=== PATIENT | male | born 1965 | race Two or more races ===

== ENCOUNTER 2021-09-04 06:26 | Day surgery (SDC) | payer MEDICARE ==
[~2021-09-04] VITALS: Ht 30.5 cm; Wt 0.5 kg
[2021-09-04] MEDS ORDERED: BUPIVACAINE HCL 50 ML ONE (06:54)
[2021-09-04] MEDS ORDERED: ceFAZolin 1GM/50ML 100 ML IV ONE (07:01)
[2021-09-04] MEDS ORDERED: SUCCINYLCHOLINE CHLORIDE 20 MG/ML 10ML VIAL IV ONE (07:34)
[2021-09-04] MEDS ORDERED: fentaNYL CITRATE 100 MCG/2 ML VL ONE (07:38)
[2021-09-04] MEDS ORDERED: MIDAZOLAM HCL 2MG/2ML 2ml VIAL (1mg/ml) ONE (07:38)
[2021-09-04] MEDS ORDERED: ROCURONIUM 10MG/ML 10ML VIAL IV ONE (07:39)
[2021-09-04] MEDS ORDERED: LIDOCAINE 1% (LOCAL ANESTH.) PF 5ml SDV ONE (08:17)
[2021-09-04] MEDS ORDERED: ONDANSETRON HCL 4 MG/2 ML VIAL ONE (08:17)
[2021-09-04] MEDS ORDERED: PROPOFOL 10 MG/ML 20 ML IV ONE (08:18)
[2021-09-04] MEDS ORDERED: GLYCOPYRROLATE 0.2 MG/ML 1ML VIAL ONE (08:30)
[2021-09-04] MEDS ORDERED: NEOSTIGMINE 1 MG/ML INJ (10mg/10ML VIAL) ONE (08:30)
[2021-09-04] MEDS ORDERED: ONDANSETRON HCL 4 MG/2 ML VIAL IV PRN (08:45)
[2021-09-04] MEDS ORDERED: HYDROmorphone HCL 2 MG/ML VL/or syr IV PRN (08:45)
[2021-09-04] MEDS ORDERED: OXY10CRT PO (09:13)
[2021-09-04 10:15] VITALS: BP 106/67
== END 2021-09-04 10:25 | disposition home or self-care (01) ==
LOC: SUR 06:26
PROVIDERS: ATTEND Orthopaedic Surgery Sports Medicine
DX: S83.232A Complex tear of medial meniscus, current injury, left knee, initial encounter (principal); M94.262 Chondromalacia, left knee; E66.9 Obesity, unspecified; E03.9 Hypothyroidism, unspecified; F43.10 Post-traumatic stress disorder, unspecified; Z91.041 Radiographic dye allergy status; Z20.822 Contact with and (suspected) exposure to COVID-19; Z98.890 Other specified postprocedural states; Z79.899 Other long term (current) drug therapy; Z68.1 Body mass index [BMI] 19.9 or less, adult; Z79.890 Hormone replacement therapy; X58.XXXA Exposure to other specified factors, initial encounter; Y93.89 Activity, other specified; Y92.89 Other specified places as the place of occurrence of the external cause; Y99.8 Other external cause status
CPT/HCPCS: 29881; C9803; J0330; J0690; J2250; J2405; J2704; J3010; J3490; U0003

== ENCOUNTER 2022-12-09 21:43 | Emergency (ER) | payer MEDICARE ==
[~2022-12-09] VITALS: Ht 182.9 cm; Wt 125.0 kg
[~2022-12-09 21:43] MED LIST: OXY10CRT PO
[2022-12-09 22:06] VITALS: BP 166/101; PULSE 72; RESP 16; O2SAT 95
== END 2022-12-09 22:11 | disposition left against medical advice (07) ==
LOC: EDBD 21:43 → ER 21:43
DX: R10.12 Left upper quadrant pain (principal); Z53.21 Procedure and treatment not carried out due to patient leaving prior to being seen by health care provider
CPT/HCPCS: 93005

== ENCOUNTER 2024-05-11 06:14 | Day surgery (SDC) | payer MEDICARE ==
[~2024-05-11] VITALS: Ht 182.9 cm; Wt 127.0 kg
[~2024-05-11 06:14] MED LIST changes: +AMLO1TAB23 PO; +CARV3.1240 PO; +FURO40TA4 PO; +LEVO88TA4 PO; -OXY10CRT PO; +VALS320T PO
[2024-05-11] MEDS ORDERED: ROCURONIUM 10MG/ML 10ML VIAL IV ONE (06:33)
[2024-05-11] MEDS ORDERED: SUCCINYLCHOLINE CHLORIDE 20 MG/ML 10ML VIAL IV ONE (06:33)
[2024-05-11] MEDS ORDERED: fentaNYL CITRATE 100 MCG/2 ML VL ONE ×2 (06:41→09:32)
[2024-05-11] MEDS ORDERED: MIDAZOLAM HCL 2MG/2ML 2ml VIAL (1mg/ml) ONE (06:41)
[2024-05-11] MEDS ORDERED: MEPERIDINE HCL (50 MG/ML) 1 ML VIAL ONE (06:41)
[2024-05-11] MEDS ORDERED: DexAMETHasone SOD PHOS 10MG/1ML VIAL INJ ONE (06:42)
[2024-05-11] MEDS ORDERED: GLYCOPYRROLATE 0.2 MG/ML 1ML VIAL ONE (06:42)
[2024-05-11] MEDS ORDERED: SODIUM CHLORIDE LOCK 40 ML ONE (06:42)
[2024-05-11] MEDS ORDERED: ONDANSETRON HCL 4 MG/2 ML VIAL ONE (06:42)
[2024-05-11] MEDS ORDERED: NEOSTIGMINE 1 MG/ML INJ (10mg/10ML VIAL) ONE (06:42)
[2024-05-11] MEDS ORDERED: LIDOCAINE 1% INJ PF 5ML AMP ONE (06:42)
[2024-05-11] MEDS ORDERED: LIDOCAINE HCL 2% TOP JELLY 5ML TOP ONE (06:42)
[2024-05-11] MEDS ORDERED: PROPOFOL 10 MG/ML 20 ML IV ONE (06:42)
[2024-05-11] MEDS ORDERED: fentaNYL CITRATE 100 MCG/2 ML VL IV PRN (07:00)
[2024-05-11] MEDS ORDERED: HYDROmorphone HCL 2 MG/ML VL/or syr IV PRN ×2 (07:00)
[2024-05-11] MEDS ORDERED: MORPHINE SULFATE INJ 2 MG/ml SYRG IV PRN (07:00)
[2024-05-11] MEDS ORDERED: KETOROLAC TROMETH 30 MG/ML 1ML VIAL IV ONE (07:00)
[2024-05-11] MEDS ORDERED: LIDOCAINE 2% JELLY 11ml (GLYDO) ONE (07:07)
[2024-05-11] MEDS: ceFAZolin 1GM VL ONE (07:33)
[2024-05-11] MEDS ORDERED: ceFAZolin 1GM VL ONE (07:44)
[2024-05-11] MEDS: BUPIVACAINE HCL 50 ML ONE (08:01)
[2024-05-11] MEDS: EPINEPHrine HCL 1 MG/1 ML AMP ONE (08:01)
[2024-05-11] MEDS ORDERED: ROPIVACAINE 0.5% (5MG/ML) 20ML AMPULE IJ ONE (08:44)
[2024-05-11 10:02] VITALS: TEMP 97.6; O2SAT 90
[2024-05-11] MEDS: ALBUTEROL SULF 2.5 MG/0.5ML(0.5%) NEB SOLN NEB ONE (10:15)
[2024-05-11] MEDS: IPRATROPIUM BROM 0.5 MG/2.5ML INH SOL NEB ONE (10:15)
[2024-05-11] MEDS: ALBUTEROL SULF 2.5 MG/0.5ML(0.5%) NEB SOLN ONE (10:24)
[2024-05-11] MEDS: IPRATROPIUM BROM 0.5 MG/2.5ML INH SOL ONE (10:24)
[2024-05-11 10:25] VITALS: PULSE 86; RESP 13; O2SAT 90
[2024-05-11 10:52] VITALS: PULSE 87; RESP 13; O2SAT 93
[2024-05-11 11:45] VITALS: BP 127/72; PULSE 86; RESP 15; O2SAT 92
[2024-05-11] MEDS: METOCLOPRAMIDE HCL 5MG/ml INJ 2ml VIAL IV ONE (11:47)
--- NOTE | 2024-05-11 20:43 | DVHOP2 ---
Operative Report - 2 Report Details Date: 05/11/24 Preop Diagnosis: Left shoulder rotator cuff tear with subacromial impingement and proximal biceps tendon tear Postop Diagnosis: Left shoulder rotator cuff tear with subacromial impingement and proximal biceps Surgeon: Xena Callahan MD Anesthesiologist: Dr Husain Anesthesia: General, Regional Implant: [place] anchor x3 Consent: The patient was informed of the risks and benefits of the procedure. These include but are not limited to complications of anesthesia, postoperative infection, incomplete relief of symptoms, recurrence of symptoms, damage to blood vessels, nerves and tendons, deep venous thrombosis, pulmonary embolism and possible need for repeat surgery in the future. Complications: None Estimated Blood Loss: Less than 10 mL Indications for Surgery: The patient is a 59-year-old male who presented to the clinic with a history of left shoulder pain. Clinical and radiological evaluation demonstrated complete rotator cuff tear. Nonoperative and operative management options were discussed. The patient had failed nonoperative management and surgery in the form of shoulder arthroscopy with rotator cuff repair was discussed with him. Benefits, risks and treatment alternatives were discussed. Specific complications of the surgery such as neurovascular injury, infection, arthrofibrosis, loss of limb or life were discussed. He was noted to have high blood sugar and he was encouraged to follow up with his primary care for better glycemic control to prevent infection and for better healing. Name of Procedure Performed Left shoulder arthroscopy with rotator cuff repair, subacromial decompression and proximal biceps tenodesis Procedure Details Procedure Details: The patient was identified in the preoperative holding area and the surgical site was marked. The consent was verified. The patient was brought into the operating room and placed supine on the operating table. General anesthesia was administered. The beachchair attachment was applied to the operating table. The patient was now brought up into the beachchair position, approximately 60 degrees. The arm was prepped and draped in the usual sterile manner. The arm was placed in the attachment for the spyder, mechanical arm cruz. The extremity was examined under anesthesia and was found to have good passive range of motion. A timeout was performed to confirm the identity of the patient, the nature of surgery, the site of surgery, the available of implants and x-rays and allergies to medications A standard posterior portal established. A 30 degree scope was inserted A standard anterior portal was established. A probe was inserted and the findings are as follows: 1. Intact subscapularis tendon 2. Significant fraying and tear of the biceps tendon 3. Circumferential degenerative labral tear 4. Grade I-II chondromalacia 5. Significant synovitis 6. Full-thickness rotator cuff tear, large-sized with retraction to cartilage with delamination The subacromial space was entered. Significant bursitis was noted. Decompression was carried out with bursectomy. The rotator cuff tear was visualized. This was a large sized tear after debridement. This was delaminated and the inferior part was retracted up to the glenoid. The superior portion was at the mid glenohumeral joint. Extensive releases were performed. A thermal ablation Wand was used on the superior and inferior surface of the rotator cuff to do the releases. Rotator interval was also released. Significant time and efforts were spent doing the steps was to decrease the tension on the final repair. After this step, the cuff was very mobile. I decided to do a double row repair for this tear. A medial row [place] bioabsorbable alpha vent anchor was inserted anteriorly. A posterior similar anchor was now inserted. 2 additional portals were made, the posterior lateral portal and the superior portal for this. A cannula was inserted into the lateral portal. A suture penetration and grasping device was used to grasp the tissue and passed the sutures. The sutures were sequentially passed from anterior to posterior direction. 8 passes were made. The sutures were now tied for an excellent medial row footprint coverage. The anterior two sutures were passed through the biceps tendon for a biceps tenodesis and then passed through the cuff as well. Biceps tenodesis was completed. 4 of the sutures were now inserted into a knotless lateral row anchor. This was used as per manufacture's guidelines. A punch was used. Next, the anchor was used and inserted into the bone. Good fixation was noted. Subacromial decompression was completed with acromioplasty to remove approximately 5 mm of acromion as it was downsloping in nature. Irrigation was given and the skin portals were closed with 2-0 nylon Sterile dressing was applied. Local anesthetic was given. Shoulder immobilizer was applied Disposition: Good, the patient was extubated and taken to recovery without any complications. The patient was examined in the recovery and had intact neurovascular exam Plan: To remain in the brace. Follow-up in 1 week. Condition Good Disposition Home XENA CALLAHAN MD May 11, 2024 20:43
== END 2024-05-11 12:20 | disposition home or self-care (01) ==
LOC: SUR 06:14
PROVIDERS: ATTEND Orthopaedic Surgery Sports Medicine
DX: M75.122 Complete rotator cuff tear or rupture of left shoulder, not specified as traumatic (principal); S46.212A Strain of muscle, fascia and tendon of other parts of biceps, left arm, initial encounter; S43.492A Other sprain of left shoulder joint, initial encounter; M25.812 Other specified joint disorders, left shoulder; M94.212 Chondromalacia, left shoulder; M65.812 Other synovitis and tenosynovitis, left shoulder; I10 Essential (primary) hypertension; G89.29 Other chronic pain; E03.9 Hypothyroidism, unspecified; E66.01 Morbid (severe) obesity due to excess calories; M25.512 Pain in left shoulder; Z88.8 Allergy status to other drugs, medicaments and biological substances; Z88.5 Allergy status to narcotic agent; Z98.890 Other specified postprocedural states; Z79.899 Other long term (current) drug therapy
CPT/HCPCS: 29826; 29827; 29828; 64415; 82962; 94640; C1713; J0171; J0330; J0690; J1100; J2175; J2250; J2405; J2704; J2765; J2795; J3010; J3490; A4565